=== PATIENT | female | born 2000 | race Two or more races ===

== ENCOUNTER 2022-07-01 21:37 | Emergency (ER) | payer OTHER ==
[~2022-07-01] VITALS: Ht 160 cm; Wt 50.8 kg
== END 2022-07-01 23:17 | disposition home or self-care (01) ==
LOC: ER 21:37
DX: O23.32 Infections of other parts of urinary tract in pregnancy, second trimester (principal); N39.0 Urinary tract infection, site not specified; R31.9 Hematuria, unspecified; Z3A.18 18 weeks gestation of pregnancy

== ENCOUNTER 2022-07-04 14:17 | Outpatient (CLI) | payer OTHER | END 2022-07-04 15:45 | disposition home or self-care (01) | LOC: PRENATAL 14:17 | PROVIDERS: ATTEND Obstetrics & Gynecology Maternal & Fetal Medicine | DX: O35.9XX0 Maternal care for (suspected) fetal abnormality and damage, unspecified, not applicable or unspecified (principal); O35.3XX0 Maternal care for (suspected) damage to fetus from viral disease in mother, not applicable or unspecified; O34.10 Maternal care for benign tumor of corpus uteri, unspecified trimester; Z3A.18 18 weeks gestation of pregnancy ==

== ENCOUNTER 2022-10-08 15:27 | Outpatient (CLI) | payer OTHER | END 2022-10-08 16:00 | disposition home or self-care (01) | LOC: PRENATAL 15:27 | PROVIDERS: ATTEND Obstetrics & Gynecology Maternal & Fetal Medicine | DX: O26.849 Uterine size-date discrepancy, unspecified trimester (principal); O36.8199 Decreased fetal movements, unspecified trimester, other fetus; Z3A.32 32 weeks gestation of pregnancy ==

== ENCOUNTER 2022-11-20 20:50 | Outpatient (CLI) | payer OTHER ==
[2022-11-20] MEDS ORDERED: PRENATAL TABLE1 EAC1 PO (21:21)
[2022-11-20] MEDS ORDERED: IRON236 MG PO (21:22)
== END 2022-11-21 22:17 | disposition home or self-care (01) ==
LOC: OBS/DEL 20:50
PROVIDERS: ATTEND Obstetrics & Gynecology
DX: O36.8330 Maternal care for abnormalities of the fetal heart rate or rhythm, third trimester, not applicable or unspecified (principal); Z3A.38 38 weeks gestation of pregnancy

== ENCOUNTER 2022-11-27 21:23 | Inpatient (IN) | payer OTHER ==
[~2022-11-27] VITALS: Ht 160 cm; Wt 3.2 kg
[~2022-11-27 21:23] MED LIST: IRON236 MG PO; PRENATAL TABLE1 EAC1 PO
[2022-12-01] MEDS ORDERED: IBUPROFEN800 MG PO (09:50)
== END 2022-12-01 13:36 | disposition home or self-care (01) | DRG 788 ==
LOC: O/R 21:23 → LDR 21:23 → OB/GYN 21:23 → O/R 11-28 16:09 → OB/GYN 11-28 18:21
PROVIDERS: ADMIT Obstetrics & Gynecology; ATTEND Obstetrics & Gynecology
PROC: 4A1HXCZ Monitoring of Products of Conception, Cardiac Rate, External Approach (ICD-10-PCS; 2022-11-27)
PROC: 3E033VJ Introduction of Other Hormone into Peripheral Vein, Percutaneous Approach (ICD-10-PCS; 2022-11-27)
PROC: 3E0P7VZ Introduction of Hormone into Female Reproductive, Via Natural or Artificial Opening (ICD-10-PCS; 2022-11-28)
PROC: 10D00Z1 Extraction of Products of Conception, Low, Open Approach (ICD-10-PCS; principal; 2022-11-28 16:30)
DX: O36.8330 Maternal care for abnormalities of the fetal heart rate or rhythm, third trimester, not applicable or unspecified (principal); Z3A.39 39 weeks gestation of pregnancy; Z37.0 Single live birth; Z20.822 Contact with and (suspected) exposure to COVID-19

== ENCOUNTER 2025-02-22 17:56 | Emergency (ER) | payer OTHER ==
[~2025-02-22] VITALS: Ht 160 cm; Wt 49.0 kg
[~2025-02-22 17:56] MED LIST changes: +IBUPROFEN800 MG PO
[2025-02-22] MEDS ORDERED: ORPHENADRINE CITRATE 30 MG/ML AMPUL IM ONE (19:30)
[2025-02-22] MEDS ORDERED: ORPHENADRINE CITRATE 30 MG/ML AMPUL ONE (19:33)
[2025-02-22 20:17] LABS: BASO % 0.6 % (0.1-1.2); EOS # 0.10 (0.04-0.54); EOS % 1.2 % (0.7-7.0); LYMPH # 2.88 (1.18-3.74); LYMPH % 34.8 % (19.3-53.1); MEAN PLATELET VOLUME 11.60 fl (9.4-12.4); MONO # 0.66 (0.24-0.82); MONO % 8.0 % (4.7-12.5); NEUT # 4.56 (1.56-6.13); NEUT % 55.2 % (34.0-71.1); RED CELL DISTRIBUTION WIDTH 17.1 % (11.6-14.4)
[2025-02-22 20:34] LABS: ALT/SGPT 19.0 U/L (12-78); AST/SGOT 10.0 U/L (15-37); BILIRUBIN TOTAL 0.34 mg/dL (0.3-1.2); BUN CREA RATIO 13.0 (7.0-25.0); CREATININE SERUM 0.78 mg/dL (0.55-1.02); GFR 89.99; GLOBULINA 3.2 G/DL (2.4-3.5); GLUCOSE FASTING 99.0 mg/dL (65-100); OSMOLALITY SERUM 280.0 MOSM/KG (275-295)
[2025-02-22] MEDS ORDERED: NORFLEX100MG PO (21:08)
[2025-02-22] MEDS ORDERED: DICLOFENAC SODI50 MG PO (21:08)
== END 2025-02-22 21:48 ==
LOC: ER 17:57
PROVIDERS: General Practice
DX: R07.89 Other chest pain (principal); M62.838 Other muscle spasm

== ENCOUNTER → 2025-03-02 | Emergency (ER) | payer OTHER ==
[~2025-03-02] VITALS: Ht 160 cm; Wt 47.6 kg
[~2025-03-02] MED LIST changes: +DICLOFENAC SODI50 MG PO; +MAGNESIUM250 M1 PO; +NORFLEX100MG PO; +PEPCID AC20 MG PO; +SINGULAIR10 MG PO
[2025-03-02 20:57] VITALS: BP 123/77; O2SAT 100
[2025-03-02 22:09] LABS: BASO % 0.4 % (0.1-1.2); EOS # 0.05 (0.04-0.54); EOS % 0.5 % (0.7-7.0); LYMPH # 2.23 (1.18-3.74); LYMPH % 22.6 % (19.3-53.1); MEAN PLATELET VOLUME 10.90 fl (9.4-12.4); MONO # 0.65 (0.24-0.82); MONO % 6.6 % (4.7-12.5); NEUT # 6.87 (1.56-6.13); NEUT % 69.8 % (34.0-71.1); RED CELL DISTRIBUTION WIDTH 17.1 % (11.6-14.4)
[2025-03-02 22:30] LABS: COVID-19 AG NEGATIVE (NEGATIVE)
[2025-03-02 22:42] LABS: ALT/SGPT 15.0 U/L (12-78); AST/SGOT 11.0 U/L (15-37); BILIRUBIN TOTAL 0.21 mg/dL (0.3-1.2); BUN CREA RATIO 16.0 (7.0-25.0); CREATININE SERUM 0.86 mg/dL (0.55-1.02); GFR 80.4; GLOBULINA 3.5 G/DL (2.4-3.5); GLUCOSE FASTING 99.0 mg/dL (65-100); OSMOLALITY SERUM 284.0 MOSM/KG (275-295); TSH 2.4 uIU/mL (0.358-3.74)
== END | disposition home or self-care (01) ==
LOC: ER 20:49
PROVIDERS: General Practice
DX: R07.89 Other chest pain (principal); Z20.822 Contact with and (suspected) exposure to COVID-19